=== PATIENT | male | born 1985 | race Caucasian/White ===

== ENCOUNTER 2017-07-12 03:38 | Emergency (ER) | payer BC, OTHER ==
[~2017-07-12] VITALS: Ht 172.7 cm; Wt 82.4 kg
[~2017-07-12 03:38] MED LIST: ALPR0.25 PO; BACT800T5 PO; CITA20TA4 PO
[2017-07-12 03:42] VITALS: BP 138/100; PULSE 91; RESP 12; TEMP 98.3; O2SAT 97
[2017-07-12 03:45] VITALS: BP 138/100; PULSE 91; RESP 12; TEMP 98.3; O2SAT 97
--- NOTE | 2017-07-12 05:29 | PD ---
HPI Chief Complaint: Chest Pain Time Seen by Provider: 05:23 Travel History International Travel<30 days: No Contact w/Intl Traveler<30days: No Traveled to known affect area: No History of Present Illness HPI The patient is a 31-year-old male that has had chest pain for a week. It is located in the midsternal area of his chest and is a sharp pain which is pleuritic. The pain is constant but worse when he takes a deep breath or coughs. He denies any nausea, shortness of breath, diaphoresis or radiation of pain. He denies any double or near syncopal spells. He does not have a history of heart disease. He denies any history of diabetes, hypertension and does not smoke. He does not know what his cholesterol level is. PFSH Past Medical History Anxiety: Yes Cardiovascular Problems: Yes (BRADYCARDIA) Tetanus Vaccination: < 5 Years Influenza Vaccination: No ?: Not Past Surgical History Appendectomy: Yes Social History Alcohol Use: Yes ([employer]) Tobacco Use: No Substance Use: No Allergies-Medications (Allergen,Severity, Reaction): Coded Allergies: codeine (Verified Allergy, Intermediate, 07/12/17) iohexol (Verified Allergy, Unknown, hives/swelling of throat, 07/12/17) Reported Meds & Prescriptions Reported Meds & Active Scripts Active Citalopram (Citalopram Hydrobromide) 20 Mg Tab 20 Mg PO DAILY Review of Systems Except as stated in HPI: all other systems reviewed are Neg Physical Exam Narrative GENERAL: The patient is alert, oriented 3 in minimal apparent distress with his chest discomfort. His vital signs show blood pressure 138/100 but otherwise normal. SKIN: Focused skin assessment warm/dry. No skin rash is seen. HEAD: Atraumatic. Normocephalic. EYES: Pupils equal and round. No scleral icterus. No injection or drainage. ENT: No nasal bleeding or discharge. Mucous membranes pink and moist. NECK: Trachea midline. No JVD. CARDIOVASCULAR: Regular rate and rhythm. No murmur appreciated. I cannot reproduce the patient's pain by pressing on the chest wall where he perceives as pain. RESPIRATORY: No accessory muscle use. Clear to auscultation. Breath sounds equal bilaterally. GASTROINTESTINAL: Abdomen soft, non-tender, nondistended. Hepatic and splenic margins not palpable. No guarding or rebound is present. MUSCULOSKELETAL: No obvious deformities. No clubbing. No cyanosis. No edema. NEUROLOGICAL: Awake and alert. No obvious cranial nerve deficits. Motor grossly within normal limits. Normal speech. PSYCHIATRIC: Appropriate mood and affect; insight and judgment normal. Data Data Last Documented VS Vital Signs Date Time Temp Pulse Resp B/P (MAP) Pulse Ox O2 Delivery O2 Flow Rate FiO2 07/12/17 06:01 98.3 84 16 162/95 (117) 96 Room Air Orders Orders Electrocardiogram (07/12/17 05:23) Ckmb (Isoenzyme) Profile (07/12/17 05:23) Complete Blood Count With Diff (07/12/17 05:23) Comprehensive Metabolic Panel (07/12/17 05:23) Magnesium (Mg) (07/12/17 05:23) Troponin I (07/12/17 05:23) Ecg Monitoring (07/12/17 05:23) Bilateral Bp Monitoring (07/12/17 05:23) Iv Access Insert/Monitor (07/12/17 05:23) Oximetry (07/12/17 05:23) Oxygen Administration (07/12/17 05:23) Sodium Chloride 0.9% Flush (Ns Flush) (07/12/17 05:30) Chest, Pa & Lat (07/12/17 05:23) CKMB (07/12/17 04:00) CKMB% (07/12/17 04:00) Labs Laboratory Tests Test 07/12/17 04:00 White Blood Count 7.8 TH/MM3 Red Blood Count 5.39 MIL/MM3 Hemoglobin 15.5 GM/DL Hematocrit 45.6 % Mean Corpuscular Volume 84.6 FL Mean Corpuscular Hemoglobin 28.7 PG Mean Corpuscular Hemoglobin Concent 33.9 % Red Cell Distribution Width 12.7 % Platelet Count 249 TH/MM3 Mean Platelet Volume 8.8 FL Neutrophils (%) (Auto) 48.7 % Lymphocytes (%) (Auto) 37.1 % Monocytes (%) (Auto) 6.6 % Eosinophils (%) (Auto) 6.6 % Basophils (%) (Auto) 1.0 % Neutrophils # (Auto) 3.8 TH/MM3 Lymphocytes # (Auto) 2.9 TH/MM3 Monocytes # (Auto) 0.5 TH/MM3 Eosinophils # (Auto) 0.5 TH/MM3 Basophils # (Auto) 0.1 TH/MM3 CBC Comment DIFF FINAL Differential Comment Blood Urea Nitrogen 16 MG/DL Creatinine 1.00 MG/DL Random Glucose 127 MG/DL Total Protein 7.9 GM/DL Albumin 4.0 GM/DL Calcium Level 8.6 MG/DL Magnesium Level 1.9 MG/DL Alkaline Phosphatase 87 U/L Aspartate Amino Transf (AST/SGOT) 28 U/L Alanine Aminotransferase (ALT/SGPT) 69 U/L Total Bilirubin 0.3 MG/DL Sodium Level 137 MEQ/L Potassium Level 3.2 MEQ/L Chloride Level 101 MEQ/L Carbon Dioxide Level 25.5 MEQ/L Anion Gap 11 MEQ/L Estimat Glomerular Filtration Rate 86 ML/MIN Total Creatine Kinase 104 U/L Troponin I LESS THAN 0.02 NG/ML MDM Medical Decision Making Medical Screen Exam Complete: Yes Emergency Medical Condition: Yes Medical Record Reviewed: Yes Interpretation(s) The EKG shows sinus tachycardia with a rate of [address] elevation or depression. The complete metabolic profile shows a potassium of 3.2, glucose of 127 but is otherwise unremarkable. The cardiac enzymes are normal. The CBC is normal. The chest x-ray shows no acute disease. Differential Diagnosis Pleuritic pain, chest wall pain, atypical chest pain, esophageal pain, gastrointestinal pain, acute coronary syndrome, pulmonary embolus-highly unlikely Narrative Course The patient appears to have pleuritic chest pain. He does not have a tachycardia and his oximetry is excellent with respirations of only 12 which strongly goes against pulmonary embolus. There is no evidence for acute coronary syndrome. His symptoms appear to be pleuritic pain because it hurts when he takes a deep breath and coughs. Plan: Patient be given Motrin, 800 mg 3 times daily. He should follow-up with a primary care physician this week. Procedures EKG Prior to Arrival: No Diagnosis Primary Impression: Atypical chest pain Med/Other Pt SpecificInfo: Prescription(s) given Scripts Ibuprofen (Ibuprofen) 800 Mg Tab 800 MG PO TID, #33 TAB 0 Refills Prov: Santo Maria MD 07/12/17 Disposition: 01 DISCHARGE HOME Condition: Stable Santo Maria MD Jul 12, 2017 05:29
[2017-07-12] MEDS ORDERED: SODIUM CHLORIDE 0.9% FLUSH 10 ML FLUSH IVF PRN (05:30)
[2017-07-12 05:54] VITALS: BP_SYST 153; BP_SYST 162; BP_DIAS 100; BP_DIAS 95; PULSE 84; RESP 16; TEMP 98.5; O2SAT 96
[2017-07-12 06:01] VITALS: BP 162/95; PULSE 84; RESP 16; TEMP 98.3; O2SAT 96
[2017-07-12 06:02] LABS: AUTOMATED NEUTROPHIL # 3.8 TH/MM3 (1.8-7.7); BASOPHIL # 0.1 TH/MM3 (0-0.2); EOSINOPHIL # 0.5 TH/MM3 (0-0.4); EOSINOPHIL % 6.6 % (0.0-4.0); HEMATOCRIT 45.6 % (39.0-51.0); HEMO FLAGS DIFF FINAL; LYMPH % 37.1 % (9.0-44.0); LYMPHOCYTE # 2.9 TH/MM3 (1.0-4.8); MEAN CELL VOLUME 84.6 FL (80.0-100.0); MEAN CORPUSCULAR HEMOGLOBIN 28.7 PG (27.0-34.0); MEAN CORPUSCULAR HGB CONC 33.9 % (32.0-36.0); MONO % 6.6 % (0.0-8.0); NEUT % 48.7 % (16.0-70.0); PLATELET COUNT 249 TH/MM3 (150-450); RED BLOOD COUNT 5.39 MIL/MM3 (4.50-5.90); RED CELL DISTRIBUTION WIDTH 12.7 % (11.6-17.2); WHITE BLOOD COUNT 7.8 TH/MM3 (4.0-11.0)
--- NOTE | 2017-07-12 06:02 | RADRPT ---
EXAM DATE/TIME: 07/12/2017 05:46 [facility] COMPARISON: No previous studies available for comparison. INDICATIONS : Chest pain. MEDICAL HISTORY : None. SURGICAL HISTORY : None. ENCOUNTER: Initial ACUITY: 1 week PAIN SCORE: 5/10 LOCATION: Bilateral chest FINDINGS: PA and lateral views of the chest demonstrate the lungs to be symmetrically aerated without evidence of mass, infiltrate or effusion. The cardiomediastinal contours are unremarkable. Osseous structure s are intact. CONCLUSION: No acute disease. Renny Koch MD on July 12, 2017 at 6:00 Board Certified Radiologist. This report was verified electronically.
[2017-07-12 06:10] LABS: CHLORIDE 101 MEQ/L (98-107); POTASSIUM 3.2 MEQ/L (3.5-5.1); SODIUM (NA) 137 MEQ/L (136-145)
[2017-07-12 06:14] LABS: ANION GAP 11 MEQ/L (5-15); BICARBONATE 25.5 MEQ/L (21.0-32.0); MAGNESIUM 1.9 MG/DL (1.5-2.5)
[2017-07-12 06:17] LABS: AST (GOT) 28 U/L (15-37); GLOMERULAR FILTRATION RATE 86 ML/MIN (>89)
[2017-07-12 06:18] LABS: TOTAL BILIRUBIN ADULT 0.3 MG/DL (0.2-1.0)
[2017-07-12 06:20] LABS: ALKALINE PHOSPHATASE 87 U/L (45-117); CREATINE KINASE 104 U/L (39-308)
[2017-07-12 06:32] LABS: BLOOD UREA NITROGEN 16 MG/DL (7-18)
[2017-07-12 06:33] LABS: ALT (GPT) 69 U/L (12-78)
[2017-07-12] MEDS ORDERED: IBUP1TAB7 PO (06:43)
[2017-07-12 06:48] LABS: CKMB 1.5 NG/ML (0.5-3.6)
[2017-07-12 06:56] VITALS: BP 140/95; TEMP 98.1
[2017-07-12] MEDS ORDERED: POTASSIUM CHLORIDE 20 MEQ CONTROLLED RELEASE TAB PO ONE (07:00)
--- NOTE | 2017-07-12 14:34 | EKG ---
Date Performed: 07/12/2017 Time Performed: 03:51:24 PTAGE: 31 years EKG: SINUS TACHYCARDIA NONSPECIFIC T-WAVE ABNORMALITY ABNORMAL RHYTHM ECG PREVIOUS TRACING : 07/29/2003 01.01 Compared to the previous tracing, QRS voltage has decreased , most likely due to age difference DOCTOR: Yamil Quezada Interpretating Date/Time 07/12/2017 14:32:53
== END 2017-07-12 07:15 | disposition home or self-care (01) ==
LOC: PHED 03:38
DX: R07.89 Other chest pain (principal); R94.31 Abnormal electrocardiogram [ECG] [EKG]
CPT/HCPCS: 71020; 80053; 82550; 82552; 83735; 84484; 85025; 93005; 99285